=== PATIENT | male | born 1970 | race Caucasian/White ===

== ENCOUNTER 2018-08-17 12:12 | Emergency (ER) | payer BC, OTHER ==
[~2018-08-17] VITALS: Ht 175.3 cm; Wt 90.9 kg
[2018-08-17 12:13] VITALS: BP 218/101
[2018-08-17] MEDS ORDERED: DULO30CA PO (12:18)
[2018-08-17] MEDS ORDERED: BACI50OI TOP (14:56)
[2018-08-17] MEDS ORDERED: NEOSPORIN OINT 0.9 GM PKT (FLOOR STOCK) As Ordered ONE (14:58)
[2018-08-17] MEDS ORDERED: BACITRACIN OINT 30GM TOP ONE (15:00)
== END 2018-08-17 15:08 | disposition home or self-care (01) ==
LOC: M ED 12:12
DX: T23.201A Burn of second degree of right hand, unspecified site, initial encounter (principal); X12.XXXA Contact with other hot fluids, initial encounter; Y92.89 Other specified places as the place of occurrence of the external cause; I10 Essential (primary) hypertension; E06.3 Autoimmune thyroiditis; F43.10 Post-traumatic stress disorder, unspecified; Z86.718 Personal history of other venous thrombosis and embolism; Z88.0 Allergy status to penicillin; F17.200 Nicotine dependence, unspecified, uncomplicated; Z79.899 Other long term (current) drug therapy

== ENCOUNTER 2018-09-16 18:58 | Emergency (ER) | payer OTHER, BC ==
[~2018-09-16] VITALS: Ht 175.3 cm; Wt 90.9 kg
[~2018-09-16 18:58] MED LIST: BACI50OI TOP; DULO30CA PO
[2018-09-16] MEDS ORDERED: KETOROLAC TROMETHAMINE 10 MG TAB PO ONE (20:30)
[2018-09-16] MEDS ORDERED: ACETAMINOPHEN 325 MG TAB PO ONE (20:30)
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
[2018-09-16 21:33] VITALS: BP 152/89
== END 2018-09-16 21:34 | disposition home or self-care (01) ==
LOC: M ED 18:58
DX: S00.83XA Contusion of other part of head, initial encounter (principal); Y04.8XXA Assault by other bodily force, initial encounter; Y92.119 Unspecified place in children's home and orphanage as the place of occurrence of the external cause; Y93.89 Activity, other specified; Y99.0 Civilian activity done for income or pay; I10 Essential (primary) hypertension; Z86.718 Personal history of other venous thrombosis and embolism; F43.10 Post-traumatic stress disorder, unspecified; E06.3 Autoimmune thyroiditis; Z79.899 Other long term (current) drug therapy; Z88.0 Allergy status to penicillin

== ENCOUNTER → 2018-12-29 | Outpatient (REF) | payer BC, OTHER ==
[~2018-12-29] MED LIST changes: -DULO30CA PO; +DULO30CA9 PO; +MOBI4TAB PO; +PRED20TA PO; +ZANA4TAB PO
[2018-12-29 19:56] LABS: HEMATOCRIT 48.9 % (42.0-52.0); HEMOGLOBIN 15.9 g/dl (13.5-17.5); MEAN CORPUSCULAR HGB CONC 32.5 g/dl (32.0-36.5); MEAN CORPUSCULAR VOLUME 89.1 fl (80.0-96.0); PLATELET COUNT, AUTOMATED 272 10^3/uL (150-450); RED BLOOD COUNT 5.49 10^6/uL (4.30-6.10); WHITE BLOOD COUNT 9.5 10^3/uL (4.0-10.0)
[2018-12-29 20:04] LABS: ALBUMIN 4.3 GM/DL (3.2-5.2); ALT/SGPT 34 U/L (12-78); BILIRUBIN,TOTAL 0.3 MG/DL (0.2-1.0); BLOOD UREA NITROGEN 13 MG/DL (7-18); CALCIUM LEVEL 9.5 MG/DL (8.5-10.1); CARBON DIOXIDE LEVEL 27 MEQ/L (21-32); CHLORIDE LEVEL 104 MEQ/L (98-107); CHOLESTEROL LEVEL 245 MG/DL (<200); CREATININE FOR GFR 1.11 MG/DL (0.70-1.30); FREE T4 0.86 NG/DL (0.76-1.46); GLOMERULAR FILTRATION RATE > 60.0 (>60); GLUCOSE, FASTING 181 MG/DL (70-100); HDL CHOLESTEROL 49 MG/DL (>40); LDL CHOLESTEROL 166 MG/DL (<100); MAGNESIUM LEVEL 2.1 MG/DL (1.8-2.4); NON-HDL-C 196 MG/DL; POTASSIUM SERUM 4.2 MEQ/L (3.5-5.1); SODIUM LEVEL 139 MEQ/L (136-145); TOTAL PROTEIN 8.3 GM/DL (6.4-8.2); TRIGLYCERIDES LEVEL 148 MG/DL (<150)
[2018-12-29 20:06] LABS: FOLATE 3.7 NG/ML; TOTAL 25(OH) VITAMIN D 11.2 NG/ML (30.0-100.0); VITAMIN B12 LEVEL 636 PG/ML
== END ==
LOC: M SFHCADAM 13:27
PROVIDERS: ATTEND Physician Assistant
DX: M54.41 Lumbago with sciatica, right side (principal); G89.29 Other chronic pain; I10 Essential (primary) hypertension; E78.5 Hyperlipidemia, unspecified; Z86.39 Personal history of other endocrine, nutritional and metabolic disease

== ENCOUNTER → 2019-03-30 | Outpatient (REF) | payer BC, OTHER ==
[2019-03-30 20:20] LABS: BLOOD UREA NITROGEN 11 MG/DL (7-18); CALCIUM LEVEL 9.5 MG/DL (8.5-10.1); CARBON DIOXIDE LEVEL 29 MEQ/L (21-32); CHLORIDE LEVEL 107 MEQ/L (98-107); CREATININE FOR GFR 0.96 MG/DL (0.70-1.30); GLOMERULAR FILTRATION RATE > 60.0 (>60); GLUCOSE, FASTING 118 MG/DL (70-100); POTASSIUM SERUM 4.2 MEQ/L (3.5-5.1); SODIUM LEVEL 142 MEQ/L (136-145)
[2019-03-30 20:32] LABS: HEMOGLOBIN A1c 6.6 %
== END ==
LOC: M SFHCADAM 13:20
PROVIDERS: ATTEND Physician Assistant
DX: R73.9 Hyperglycemia, unspecified (principal); R73.01 Impaired fasting glucose

== ENCOUNTER → 2019-04-12 | Outpatient (CLI) | payer BC, OTHER ==
[2019-04-12 12:19] LABS: ALBUMIN 3.9 GM/DL (3.2-5.2); ALT/SGPT 32 U/L (12-78); BILIRUBIN,DIRECT < 0.1 MG/DL (0.0-0.2); BILIRUBIN,TOTAL 0.4 MG/DL (0.2-1.0); BLOOD UREA NITROGEN 15 MG/DL (7-18); CALCIUM LEVEL 9.3 MG/DL (8.5-10.1); CARBON DIOXIDE LEVEL 27 MEQ/L (21-32); CHLORIDE LEVEL 108 MEQ/L (98-107); CREATININE FOR GFR 0.96 MG/DL (0.70-1.30); GLOMERULAR FILTRATION RATE > 60.0 (>60); GLUCOSE, FASTING 149 MG/DL (70-100); PHOSPHORUS LEVEL 3.5 MG/DL (2.5-4.9); POTASSIUM SERUM 4.3 MEQ/L (3.5-5.1); SODIUM LEVEL 142 MEQ/L (136-145); TOTAL PROTEIN 7.4 GM/DL (6.4-8.2)
[2019-04-12 12:22] LABS: HEMATOCRIT 47.1 % (42.0-52.0); HEMOGLOBIN 15.6 g/dl (13.5-17.5); MEAN CORPUSCULAR HEMOGLOBIN 28.7 pg (27.0-33.0); MEAN CORPUSCULAR HGB CONC 33.1 g/dl (32.0-36.5); MEAN CORPUSCULAR VOLUME 86.7 fl (80.0-96.0); PLATELET COUNT, AUTOMATED 254 10^3/uL (150-450); RED BLOOD COUNT 5.43 10^6/uL (4.30-6.10); WHITE BLOOD COUNT 7.9 10^3/uL (4.0-10.0)
== END ==
LOC: M WUC 09:49
PROVIDERS: ATTEND Podiatrist Foot & Ankle Surgery
DX: Z79.899 Other long term (current) drug therapy (principal)

== ENCOUNTER 2019-04-30 15:36 | Emergency (ER) | payer BC, OTHER ==
[~2019-04-30] VITALS: Ht 175.3 cm; Wt 97.7 kg
[2019-04-30] MEDS ORDERED: TERB250T90 (15:55)
[2019-04-30] MEDS ORDERED: ASPIRIN 81 MG CHEW TABLET PO ONE (16:15)
--- NOTE | 2019-04-30 16:40 | REP ---
PA and lateral chest: There are no comparisons. The lung lawson are clear. The cardiac size is normal. The savannah, mediastinum, and skeletal structures are unremarkable. Impression: Negative PA and lateral chest. Electronically Signed by Edi Eisenberg MD 04/30/2019 04:32 P
[2019-04-30 16:43] LABS: BASO # 0.1 10^3/uL (0.0-0.2); BASO % 0.5 % (0.0-1.0); EOS # 0.4 10^3/uL (0.0-0.5); EOS % 4.3 % (0.0-3.0); HEMATOCRIT 46.3 % (42.0-52.0); HEMOGLOBIN 15.6 g/dl (13.5-17.5); LYMPH # 2.5 10^3/uL (1.5-5.0); LYMPH % 26.7 % (24.0-44.0); MEAN CORPUSCULAR HEMOGLOBIN 29.1 pg (27.0-33.0); MEAN CORPUSCULAR HGB CONC 33.7 g/dl (32.0-36.5); MEAN CORPUSCULAR VOLUME 86.4 fl (80.0-96.0); MONO # 0.5 10^3/uL (0.0-0.8); MONO % 5.9 % (0.0-5.0); NEUTROPHILS # 5.7 10^3/uL (1.5-8.5); NEUTROPHILS % 62.4 % (36.0-66.0); PLATELET COUNT, AUTOMATED 251 10^3/uL (150-450); RED BLOOD COUNT 5.36 10^6/uL (4.30-6.10); WHITE BLOOD COUNT 9.2 10^3/uL (4.0-10.0)
[2019-04-30] MEDS ORDERED: ACETAMINOPHEN TAB 650MG DOSE (2X325MG) PO ONE (16:45)
[2019-04-30 17:11] LABS: INFLUENZA A AMPLIFICATION NEGATIVE (NEGATIVE); INFLUENZA B AMPLIFICATION NEGATIVE (NEGATIVE)
[2019-04-30 17:17] LABS: INR 1.02; PARTIAL THROMBOPLASTIN TIME 32.6 SECONDS (25.0-38.4); PROTHROMBIN TIME 13.1 SECONDS (11.8-14.0)
[2019-04-30 17:19] LABS: ALBUMIN 3.8 GM/DL (3.2-5.2); ALT/SGPT 35 U/L (12-78); BILIRUBIN,DIRECT < 0.1 MG/DL (0.0-0.2); BILIRUBIN,TOTAL 0.3 MG/DL (0.2-1.0); BLOOD UREA NITROGEN 12 MG/DL (7-18); CALCIUM LEVEL 8.9 MG/DL (8.5-10.1); CARBON DIOXIDE LEVEL 26 MEQ/L (21-32); CHLORIDE LEVEL 107 MEQ/L (98-107); CK-MB VALUE MASS < 1.0 NG/ML (<3.6); CPK CREATINE PHOSPHOKINASE 120 U/L (39-308); FREE T4 0.82 NG/DL (0.76-1.46); GLOMERULAR FILTRATION RATE > 60.0 (>60); GLUCOSE, FASTING 158 MG/DL (70-100); LIPASE 154 U/L (73-393); MB/CK RELATIVE INDEX 0.83 (< OR =4); POTASSIUM SERUM 3.6 MEQ/L (3.5-5.1); SODIUM LEVEL 140 MEQ/L (136-145); TOTAL PROTEIN 7.9 GM/DL (6.4-8.2); TROPONIN I < 0.02 NG/ML (< 0.10)
[2019-04-30] MEDS ORDERED: ISOVUE-370 76% 100ML VIAL (Q9967) As Ordered ONE (17:29)
--- NOTE | 2019-04-30 18:56 | REPVR ---
PROCEDURE INFORMATION: Exam: CT Angiography Chest With Contrast Exam date and time: 04/30/2019 5:46 PM Clinical history: 48 years old, male; Chest wall pain; Additional info: Pleuritic chest pain, SOB TECHNIQUE: Imaging protocol: Computed tomographic angiography of the chest with intravenous contrast. 3D rendering: MIP reconstructed images were created and reviewed. Radiation optimization: All CT scans at this facility use at least one of these dose optimization techniques: automated exposure control; mA and/or kV adjustment per patient size (includes targeted exams where dose is matched to clinical indication); or iterative reconstruction. Contrast material: ISOVUE 370; Contrast volume: 75 ml; Contrast route: IV; COMPARISON: CR Chest, 2 view PA, Lat 04/30/2019 4:19 PM FINDINGS: Pulmonary arteries: No focal pulmonary artery filling defect to suggest acute pulmonary embolus. Aorta: No thoracic aortic aneurysm or dissection. Lungs: Pulmonary vascular/interstitial pattern does not suggest active pulmonary edema. No suspicious lung mass or air space process. No central endobronchial lesion. Pleural space: No pleural effusion or pneumothorax. Heart: No overt cardiac enlargement or pericardial effusion. Lymph nodes: No enlarged mediastinal lymph nodes. Bones/joints: Bony structures show no acute fracture or destructive process. Other findings: Limited visualization of upper abdomen shows no concerning finding. IMPRESSION: No evidence of acute pulmonary emboli or other concerning focal thoracic abnormality Electronically signed by: Vernon Cee On 04/30/2019 18:56:17 PM
[2019-04-30 22:24] LABS: CK-MB VALUE MASS 1.1 NG/ML (<3.6); CPK CREATINE PHOSPHOKINASE 118 U/L (39-308); MB/CK RELATIVE INDEX 0.93 (< OR =4); TROPONIN I < 0.02 NG/ML (< 0.10)
[2019-04-30 23:00] VITALS: BP 154/89
--- NOTE | 2019-05-01 08:13 | ECGEPIP ---
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
--- NOTE | 2019-05-01 08:18 | ECGEPIP ---
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
== END 2019-04-30 23:33 | disposition home or self-care (01) ==
LOC: M ED 15:36
DX: R53.81 Other malaise (principal); R07.89 Other chest pain; R94.31 Abnormal electrocardiogram [ECG] [EKG]; I10 Essential (primary) hypertension; Z79.899 Other long term (current) drug therapy; Z86.39 Personal history of other endocrine, nutritional and metabolic disease; Z87.891 Personal history of nicotine dependence; Z88.0 Allergy status to penicillin
CPT/HCPCS: 71046; 71275; 80048; 80076; 82550; 82553; 83690; 84439; 84443; 84484; 85025; 85610; 85730; 87502; 93005; 93041; 94760; 99285; Q9967

== ENCOUNTER 2019-05-06 01:39 | Emergency (ER) | payer BC, OTHER ==
[~2019-05-06 01:39] MED LIST changes: +TERB250T90
[2019-05-06 02:11] LABS: BASO # 0.1 10^3/uL (0.0-0.2); BASO % 0.9 % (0.0-1.0); EOS # 0.5 10^3/uL (0.0-0.5); EOS % 5.2 % (0.0-3.0); HEMATOCRIT 43.1 % (42.0-52.0); HEMOGLOBIN 14.5 g/dl (13.5-17.5); LYMPH # 3.1 10^3/uL (1.5-5.0); LYMPH % 33.8 % (24.0-44.0); MEAN CORPUSCULAR HEMOGLOBIN 29.4 pg (27.0-33.0); MEAN CORPUSCULAR HGB CONC 33.6 g/dl (32.0-36.5); MEAN CORPUSCULAR VOLUME 87.2 fl (80.0-96.0); MONO # 0.6 10^3/uL (0.0-0.8); MONO % 6.5 % (0.0-5.0); NEUTROPHILS # 4.8 10^3/uL (1.5-8.5); NEUTROPHILS % 53.3 % (36.0-66.0); PLATELET COUNT, AUTOMATED 243 10^3/uL (150-450); RED BLOOD COUNT 4.94 10^6/uL (4.30-6.10); WHITE BLOOD COUNT 9.1 10^3/uL (4.0-10.0)
[2019-05-06 02:24] LABS: INR 1.04; PROTHROMBIN TIME 13.3 SECONDS (11.8-14.0)
[2019-05-06 02:44] LABS: ALBUMIN 3.5 GM/DL (3.2-5.2); ALT/SGPT 34 U/L (12-78); BILIRUBIN,DIRECT < 0.1 MG/DL (0.0-0.2); BILIRUBIN,TOTAL 0.2 MG/DL (0.2-1.0); BLOOD UREA NITROGEN 12 MG/DL (7-18); CALCIUM LEVEL 8.8 MG/DL (8.5-10.1); CARBON DIOXIDE LEVEL 25 MEQ/L (21-32); CHLORIDE LEVEL 105 MEQ/L (98-107); CK-MB VALUE MASS < 1.0 NG/ML (<3.6); CPK CREATINE PHOSPHOKINASE 152 U/L (39-308); CREATININE FOR GFR 1.24 MG/DL (0.70-1.30); GLOMERULAR FILTRATION RATE > 60.0 (>60); GLUCOSE, FASTING 235 MG/DL (70-100); LIPASE 146 U/L (73-393); MB/CK RELATIVE INDEX 0.66 (< OR =4); SODIUM LEVEL 139 MEQ/L (136-145); TOTAL PROTEIN 6.8 GM/DL (6.4-8.2); TROPONIN I < 0.02 NG/ML (< 0.10)
[2019-05-06 03:32] LABS: HEMOGLOBIN A1c 6.7 %
[2019-05-06 04:30] VITALS: BP 110/52
[2019-05-06] MEDS ORDERED: METF500T13 PO (04:51)
[2019-05-06] MEDS ORDERED: metFORMIN (GLUCOPHAGE) 500 MG TAB PO ONE (05:00)
--- NOTE | 2019-05-06 07:48 | ECGEPIP ---
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
--- NOTE | 2019-05-06 08:04 | REP ---
Portable chest, 02:09 a.m., single AP view with the patient sitting: Comparison is 04/30/2019. The lung lawson are clear. The cardiac size is normal. The savannah, mediastinum, and skeletal structures are unremarkable. Impression: Negative portable chest. There is no interval change. Electronically Signed by Edi Eisenberg MD 05/06/2019 07:55 A
== END 2019-05-06 05:06 | disposition home or self-care (01) ==
LOC: M ED 01:39
DX: R07.89 Other chest pain (principal); E11.9 Type 2 diabetes mellitus without complications; I10 Essential (primary) hypertension; Z79.899 Other long term (current) drug therapy; Z86.39 Personal history of other endocrine, nutritional and metabolic disease; Z86.718 Personal history of other venous thrombosis and embolism; Z87.891 Personal history of nicotine dependence; Z88.0 Allergy status to penicillin

== ENCOUNTER 2019-06-28 01:14 | Emergency (ER) | payer BC, OTHER ==
[~2019-06-28] VITALS: Ht 175.3 cm; Wt 95.5 kg
[~2019-06-28 01:14] MED LIST changes: +METF500T13 PO
[2019-06-28 01:21] VITALS: BP 172/100
[2019-06-28] MEDS ORDERED: DULO1CAP6 (01:22)
[2019-06-28] MEDS ORDERED: ASPI81TA85 PO (01:22)
[2019-06-28] MEDS ORDERED: CARV6.25 (01:22)
[2019-06-28] MEDS ORDERED: CYMB60CA3 PO (12:07)
[2019-06-28] MEDS ORDERED: ACET-683 PO (12:07)
[2019-06-28] MEDS ORDERED: CYCL10TA PO (12:47)
== END 2019-06-28 02:45 | disposition left against medical advice (07) ==
LOC: M ED 01:14
DX: M25.511 Pain in right shoulder (principal); Z53.21 Procedure and treatment not carried out due to patient leaving prior to being seen by health care provider

== ENCOUNTER 2019-06-28 11:56 | Emergency (ER) | payer BC, OTHER ==
[~2019-06-28] VITALS: Ht 175.3 cm; Wt 95.5 kg
[~2019-06-28 11:56] MED LIST changes: +ASPI81TA85 PO; +CARV6.25; +DULO1CAP6
[2019-06-28 11:57] VITALS: BP 144/90
[2019-06-28] MEDS ORDERED: ACET-683 PO (12:07)
[2019-06-28] MEDS ORDERED: CYMB60CA3 PO (12:07)
[2019-06-28] MEDS ORDERED: CYCLOBENZAPRINE 10 MG TAB PO ONE (12:30)
[2019-06-28] MEDS ORDERED: NORCO, ANEXSIA 5/325MG TABLET (HYDROcodone/ACETAMINOPHEN) PO ONE (12:30)
--- NOTE | 2019-06-28 12:33 | REP ---
Clinical: Pain with decreased range of motion . Technique: Internal rotation, external rotation, and Y view right shoulder . Findings: No acute fracture or dislocation. The acromioclavicular and glenohumeral joints are intact. No periarticular calcifications or degenerative changes are appreciated. Sub acromial space is normal. Surrounding soft tissues are unremarkable. Impression: Normal age-appropriate right shoulder radiographs. Electronically Signed by Guilherme Marshall MD 06/28/2019 12:24 P
[2019-06-28] MEDS ORDERED: CYCL10TA PO (12:47)
== END 2019-06-28 13:08 | disposition home or self-care (01) ==
LOC: M ED 11:56
DX: M25.511 Pain in right shoulder (principal); E11.9 Type 2 diabetes mellitus without complications; I10 Essential (primary) hypertension; Z88.0 Allergy status to penicillin; Z87.891 Personal history of nicotine dependence; Z98.1 Arthrodesis status; Z79.4 Long term (current) use of insulin; Z79.82 Long term (current) use of aspirin; Z79.899 Other long term (current) drug therapy

== ENCOUNTER → 2019-07-12 | Outpatient (REF) | payer OTHER ==
[~2019-07-12] MED LIST changes: +ACET-683 PO; +CYCL10TA PO; +CYMB60CA3 PO
[2019-07-12 12:44] LABS: CHOLESTEROL LEVEL 279 MG/DL (<200); CHOLESTEROL RISK RATIO 7.153 (<5); HDL CHOLESTEROL 39 MG/DL (>40); NON-HDL-C 240 MG/DL; TRIGLYCERIDES LEVEL 428 MG/DL (<150)
[2019-07-12 13:05] LABS: HEMOGLOBIN A1c 6.9 %
== END ==
LOC: M SFHCADAM 10:22
PROVIDERS: ATTEND Physician Assistant
DX: R73.03 Prediabetes (principal)

== ENCOUNTER 2019-08-27 16:43 | Emergency (ER) | payer OTHER ==
[~2019-08-27] VITALS: Ht 175.3 cm; Wt 105.2 kg
[2019-08-27] MEDS ORDERED: TELM1TAB PO (16:51)
[2019-08-27] MEDS ORDERED: METF10004 PO (16:51)
[2019-08-27] MEDS ORDERED: NITR0.4S14 (16:51)
[2019-08-27] MEDS ORDERED: PERCOCET 5MG/325MG TAB PO ONE ×2 (17:30→23:00)
[2019-08-27] MEDS ORDERED: PERC5TAB12 PO (23:43)
[2019-08-27] MEDS ORDERED: OXYCODONE/APAP 5MG/325MG(BULK FOR ED) 1 TABLET PO ONE (23:45)
[2019-08-27 23:57] VITALS: BP 176/107
== END 2019-08-27 23:58 | disposition home or self-care (01) ==
LOC: M ED 16:43
DX: M54.5 Low back pain (principal); W00.9XXA Unspecified fall due to ice and snow, initial encounter; Y92.099 Unspecified place in other non-institutional residence as the place of occurrence of the external cause; Y93.01 Activity, walking, marching and hiking; Y99.9 Unspecified external cause status; E11.9 Type 2 diabetes mellitus without complications; I10 Essential (primary) hypertension; E06.3 Autoimmune thyroiditis; M54.30 Sciatica, unspecified side; Z79.82 Long term (current) use of aspirin; Z79.84 Long term (current) use of oral hypoglycemic drugs; Z79.899 Other long term (current) drug therapy; Z88.0 Allergy status to penicillin

== ENCOUNTER → 2019-09-07 | Outpatient (REF) | payer OTHER ==
[~2019-09-07] MED LIST changes: +METF10004 PO; +NITR0.4S14; +PERC5TAB12 PO; +TELM1TAB35 PO
[2019-09-07 18:01] LABS: ALBUMIN 4.3 GM/DL (3.2-5.2); ALT/SGPT 51 U/L (12-78); BILIRUBIN,TOTAL 0.3 MG/DL (0.2-1.0); BLOOD UREA NITROGEN 13 MG/DL (7-18); CALCIUM LEVEL 9.4 MG/DL (8.5-10.1); CARBON DIOXIDE LEVEL 31 MEQ/L (21-32); CHLORIDE LEVEL 104 MEQ/L (98-107); GLOMERULAR FILTRATION RATE > 60.0 (>60); GLUCOSE, FASTING 103 MG/DL (70-100); POTASSIUM SERUM 5.1 MEQ/L (3.5-5.1); SODIUM LEVEL 141 MEQ/L (136-145)
[2019-09-07 18:24] LABS: RUBELLA IgG QUALITATIVE IMMUNE (IMMUNE)
[2019-09-09 08:06] LABS: RUBEOLA IgG ANTIBODY 76.9 AU/mL (Immune >16.4)
== END ==
LOC: M SFHCADAM 13:46
PROVIDERS: ATTEND Physician Assistant
DX: M54.41 Lumbago with sciatica, right side (principal); Z91.81 History of falling; Z78.9 Other specified health status
CPT/HCPCS: 72100; 80053; 86735; 86762; 86765; G0463

== ENCOUNTER → 2019-09-07 | Outpatient (CLI) | payer OTHER ==
--- NOTE | 2019-09-07 14:41 | REP ---
Clinical: Lumbago and sciatica Technique: AP, lateral, bilateral oblique and coned-down views of the lumbosacral spine. Comparison: 12/26/2018. Findings: Alignment and lordosis maintained. Evidence for prior posterior fixation and laminectomy at L5-S1 again noted and stable. No acute fracture / compression injury or subluxation. Examination is otherwise unremarkable. Left iliac stent again noted. Impression: Stable examination. No evidence for progressive degenerative change. Electronically Signed by Guilherme Marshall MD 09/07/2019 02:33 P
== END ==
LOC: M ADAMS 13:51
PROVIDERS: ATTEND Physician Assistant
DX: M54.41 Lumbago with sciatica, right side (principal)

== ENCOUNTER → 2019-09-16 | Outpatient (CLI) | payer OTHER ==
--- NOTE | 2019-09-16 16:22 | REPVR ---
PROCEDURE INFORMATION: Exam: MR Lumbar Spine Without and With Contrast. Exam date and time: 09/16/2019 3:23 PM Age: 49 years old Clinical indication: Patient HX: Low back pain. PT was given 19cc prohance; Additional info: Lumbago w/ sciatica TECHNIQUE: Imaging protocol: Multiplanar magnetic resonance images of the lumbar spine without and with intravenous contrast. Contrast material: PROHANCE; Contrast volume: 19 ml; Contrast route: 22G; COMPARISON: DX - SPINE LS COMPLETE 09/07/2019 1:39:17 PM FINDINGS: Last rib-bearing segment on x-ray labeled T12. Assuming 5 lumbar type vertebra, fusion is at L5-S1. Please correlate closely with imaging prior to any intervention to assure proper level localization. Vertebrae: Vertebral body heights normal. There is mild retrolisthesis of L4 on L5. There are mild endplate degenerative marrow changes at L4-L5. Vertebral body marrow signal is otherwise unremarkable. Spinal cord: Conus terminates at L1 and appears normal in signal intensity without intrinsic or extrinsic lesion. There is no abnormal contrast enhancement along distal cordal cauda equina. L1-L2: Sagittal images only. There is no significant disc bulge. There is no significant spinal stenosis. There is no significant neural foraminal narrowing. L2-L3: There is no significant disc bulge. Mild facet degeneration. There is no significant spinal stenosis. There is no significant neural foraminal narrowing. L3-L4: There is no significant disc bulge. Mild facet degeneration. There is no significant facet degeneration. There is no significant spinal stenosis. There is no significant neural foraminal narrowing. L4-L5: There is partial disc desiccation and disc height loss posteriorly. There is mild disc bulge. There is mild facet degeneration. There is no significant spinal stenosis. There is mild to moderate predominantly medial bilateral neural foraminal narrowing. L5-S1: There are postoperative changes with anterior plate and screw fusion, bilateral posterior pedicle screws and rods fusion, and interbody fusion graft which is well positioned in disc space. There is posterior laminectomy. Precontrast, there appears to be mild loss fat planes around left in posterior margin of the thecal sac which likely shows minimal enhancement and suggesting minimal epidural scar. There is minimal residual posterior disc bulge. Facets are obscured by metal artifact. There is no significant spinal stenosis. There is no significant neural foraminal narrowing. Sacrum/coccyx: S1-S2: There is a rudimentary / thin disc space at this level. No disc bulge. There is no evidence of spinal stenosis or neural foraminal narrowing. Soft tissues: Unremarkable. IMPRESSION: 1. Postsurgical changes at L5-S1. Possible minimal epidural scar. 2. Mild degenerative changes greatest at L4-L5 with mild to moderate narrowing of medial aspect of neural foramen. No spinal stenosis. Electronically signed by: Cinda Murry On 09/16/2019 16:21:58 PM
== END ==
LOC: M PLARAD 14:24
PROVIDERS: ATTEND Physician Assistant
DX: M54.41 Lumbago with sciatica, right side (principal); Z91.81 History of falling; Z98.890 Other specified postprocedural states; M51.36 Other intervertebral disc degeneration, lumbar region; Z98.1 Arthrodesis status

== ENCOUNTER → 2019-10-13 | Outpatient (REF) | payer OTHER ==
[2019-10-13 16:20] LABS: PLATELET COUNT, AUTOMATED 279 10^3/uL (150-450)
[2019-10-13 17:10] LABS: PROTHROMBIN TIME 12.9 SECONDS (11.8-14.0)
[2019-10-13 17:11] LABS: PARTIAL THROMBOPLASTIN TIME 31.6 SECONDS (25.0-38.4)
== END ==
LOC: M LABDRAW1 12:06
PROVIDERS: ATTEND Physical Medicine & Rehabilitation
DX: D69.1 Qualitative platelet defects (principal); M51.36 Other intervertebral disc degeneration, lumbar region

== ENCOUNTER 2020-05-28 15:40 | Emergency (ER) | payer OTHER ==
[~2020-05-28] VITALS: Ht 175.3 cm; Wt 102.8 kg
[~2020-05-28 15:40] MED LIST changes: -ASPI81TA85 PO; +ASPI81TA86 PO; +CYCL-707 PO; -CYCL10TA PO
--- NOTE | 2020-05-28 17:06 | REP ---
INDICATION: fall injury; vert. point tender. COMPARISON: 12/26/2018 TECHNIQUE: Three views FINDINGS: AP view shows a very gentle levorotatory curve of the mid upper thoracic spine centered at T4, unchanged. Pedicles spinous and transverse processes intact. Posterior rib articulations and medial clavicles also intact. Paraspinal lines unremarkable. Cervicothoracic junction aligns normally. No compression deformity disc space narrowing or malalignment in the thoracic vertebral levels. Few small marginal osteophytes that I would regard is normal for age. IMPRESSION: Mild levorotatory curve upper thoracic spine, stable. No acute compression deformity, malalignment or destructive lesion. Visualized ribs and clavicles unremarkable. <Electronically signed by Lalito Lopez > 05/28/20 [id number]
--- NOTE | 2020-05-28 17:11 | REP ---
INDICATION: fall injury; vert. point tender. COMPARISON: 09/07/2019 TECHNIQUE: Five views FINDINGS: There is evidence for prior laminectomy with pedicle screws in arch bars at L5-S1 again seen. Narrowing of the L4-5 disc space evident as before few mm of retrolisthesis of L4 on 5 stable left common to external iliac stent is noted. Disc spacer hardware and screws also again seen and stable. There is no compression deformity or malalignment. SI joints intact. Visualized sacrum and iliac bones intact. Hip joints show small marginal osteophytes. IMPRESSION: Status post L5-S1 laminectomy and disc fusion with that disc spacer and fusion screws along with pedicle screws in arch bars at this level unchanged with no hardware failure. Alignment unchanged with a few mm of retrolisthesis of L4 on 5 and mild disc space narrowing at that level. The levels above were intact with no compression deformities. Left common at to external iliac stent again seen. <Electronically signed by Lalito Lopez > 05/28/20 [id number]
[2020-05-28] MEDS ORDERED: PERC5TAB12 PO (17:22)
[2020-05-28 17:30] VITALS: BP 145/94
[2020-05-28] MEDS ORDERED: PERCOCET 5MG/325MG TAB PO ONE (17:30)
== END 2020-05-28 17:45 | disposition home or self-care (01) ==
LOC: M ED 15:40
DX: G89.29 Other chronic pain (principal); M54.5 Low back pain; S30.0XXA Contusion of lower back and pelvis, initial encounter; W19.XXXA Unspecified fall, initial encounter; Y92.9 Unspecified place or not applicable; Y93.9 Activity, unspecified; Y99.9 Unspecified external cause status; I10 Essential (primary) hypertension; E78.5 Hyperlipidemia, unspecified; F43.10 Post-traumatic stress disorder, unspecified; Z95.828 Presence of other vascular implants and grafts; Z86.718 Personal history of other venous thrombosis and embolism; M43.27 Fusion of spine, lumbosacral region; M43.17 Spondylolisthesis, lumbosacral region; Z79.82 Long term (current) use of aspirin; Z79.84 Long term (current) use of oral hypoglycemic drugs; Z79.899 Other long term (current) drug therapy; Z88.0 Allergy status to penicillin

== ENCOUNTER → 2020-05-31 | Outpatient (REF) | payer OTHER ==
[2020-06-01 13:25] LABS: HEMATOCRIT 49.5 % (42.0-52.0); MEAN CORPUSCULAR HEMOGLOBIN 28.2 pg (27.0-33.0); MEAN CORPUSCULAR HGB CONC 32.3 g/dl (32.0-36.5); MEAN CORPUSCULAR VOLUME 87.1 fl (80.0-96.0); PLATELET COUNT, AUTOMATED 279 10^3/uL (150-450); RED BLOOD COUNT 5.68 10^6/uL (4.30-6.10)
[2020-06-01 14:03] LABS: ALBUMIN 4.3 GM/DL (3.2-5.2); ALT/SGPT 51 U/L (12-78); BILIRUBIN,TOTAL 0.5 MG/DL (0.2-1.0); BLOOD UREA NITROGEN 7 MG/DL (7-18); CALCIUM LEVEL 9.5 MG/DL (8.5-10.1); CARBON DIOXIDE LEVEL 28 MEQ/L (21-32); CHLORIDE LEVEL 104 MEQ/L (98-107); CHOLESTEROL LEVEL 248 MG/DL (<200); CHOLESTEROL RISK RATIO 6.048 (<5); CREATININE FOR GFR 1.08 MG/DL (0.70-1.30); FREE T4 0.86 NG/DL (0.76-1.46); GLOMERULAR FILTRATION RATE > 60.0 (>60); GLUCOSE, FASTING 173 MG/DL (70-100); HDL CHOLESTEROL 41 MG/DL (>40); LDL CHOLESTEROL 153 MG/DL (<100); NON-HDL-C 207 MG/DL; POTASSIUM SERUM 5.4 MEQ/L (3.5-5.1); SODIUM LEVEL 138 MEQ/L (136-145); TOTAL PROTEIN 8.4 GM/DL (6.4-8.2); TRIGLYCERIDES LEVEL 272 MG/DL (<150)
== END ==
LOC: M SFHCADAM 16:08
PROVIDERS: ATTEND Physician Assistant
DX: E11.69 Type 2 diabetes mellitus with other specified complication (principal); Z86.39 Personal history of other endocrine, nutritional and metabolic disease
CPT/HCPCS: 80053; 80061; 83036; 84439; 84443; G0463

== ENCOUNTER → 2020-08-17 | Outpatient (CLI) | payer OTHER ==
[2020-08-17 16:34] LABS: PLATELET COUNT, AUTOMATED 262 10^3/uL (150-450)
[2020-08-17 18:04] LABS: PLATELET ESTIMATE NORMAL (NORMAL)
== END ==
LOC: M WUC 11:34
PROVIDERS: ATTEND Physician Assistant
DX: M47.817 Spondylosis without myelopathy or radiculopathy, lumbosacral region (principal)

== ENCOUNTER → 2020-08-30 | Outpatient (CLI) | payer OTHER ==
[2020-08-30 16:16] LABS: HEMATOCRIT 48.6 % (42.0-52.0); HEMOGLOBIN 15.8 g/dl (13.5-17.5); MEAN CORPUSCULAR HEMOGLOBIN 28.7 pg (27.0-33.0); MEAN CORPUSCULAR HGB CONC 32.5 g/dl (32.0-36.5); MEAN CORPUSCULAR VOLUME 88.4 fl (80.0-96.0); PLATELET COUNT, AUTOMATED 278 10^3/uL (150-450); WHITE BLOOD COUNT 9.2 10^3/uL (4.0-10.0)
[2020-08-30 16:52] LABS: ALBUMIN 4.1 GM/DL (3.2-5.2); ALT/SGPT 45 U/L (12-78); BILIRUBIN,TOTAL 0.4 MG/DL (0.2-1.0); BLOOD UREA NITROGEN 12 MG/DL (7-18); CALCIUM LEVEL 9.3 MG/DL (8.5-10.1); CARBON DIOXIDE LEVEL 29 MEQ/L (21-32); CHLORIDE LEVEL 106 MEQ/L (98-107); CHOLESTEROL LEVEL 222 MG/DL (<200); CHOLESTEROL RISK RATIO 4.826 (<5); CREATININE FOR GFR 1.04 MG/DL (0.70-1.30); FREE T4 0.97 NG/DL (0.76-1.46); GLOMERULAR FILTRATION RATE > 60.0 (>60); GLUCOSE, FASTING 205 MG/DL (70-100); HDL CHOLESTEROL 46 MG/DL (>40); LDL CHOLESTEROL 134 MG/DL (<100); NON-HDL-C 176 MG/DL; SODIUM LEVEL 140 MEQ/L (136-145); TOTAL PROTEIN 7.8 GM/DL (6.4-8.2); TRIGLYCERIDES LEVEL 212 MG/DL (<150)
[2020-08-30 18:43] LABS: HEMOGLOBIN A1c 8.1 %
== END ==
LOC: M WUC 14:05
PROVIDERS: ATTEND Physician Assistant
DX: E11.69 Type 2 diabetes mellitus with other specified complication (principal); Z86.39 Personal history of other endocrine, nutritional and metabolic disease; I10 Essential (primary) hypertension

== ENCOUNTER 2021-01-27 15:09 | Emergency (ER) | payer OTHER ==
[~2021-01-27] VITALS: Ht 175.3 cm; Wt 100.6 kg
[2021-01-27] MEDS ORDERED: BUSP10TA (15:26)
[2021-01-27] MEDS ORDERED: SERT-141 PO (15:26)
[2021-01-27] MEDS ORDERED: HYDR-3713 (15:26)
[2021-01-27] MEDS ORDERED: ATOR80TA59 (15:26)
[2021-01-27] MEDS ORDERED: SYNT50TA PO (15:26)
[2021-01-27] MEDS ORDERED: ERGO500029 (15:26)
[2021-01-27] MEDS ORDERED: LISI20TA33 (15:26)
[2021-01-27] MEDS ORDERED: NS 1,000 ML IV ONE (17:00)
[2021-01-27] MEDS ORDERED: ONDANSETRON 4MG/2ML VIAL IV ONE (17:00)
[2021-01-27] MEDS ORDERED: KETOROLAC 30 MG/ML 1ML VIAL IV ONE (17:00)
[2021-01-27 17:23] LABS: BASO # 0.1 10^3/uL (0.0-0.2); BASO % 0.6 % (0.0-1.0); EOS # 0.2 10^3/uL (0.0-0.5); EOS % 1.7 % (0.0-3.0); HEMATOCRIT 40.1 % (42.0-52.0); LYMPH % 27.7 % (24.0-44.0); MEAN CORPUSCULAR HEMOGLOBIN 28.1 pg (27.0-33.0); MEAN CORPUSCULAR HGB CONC 32.4 g/dl (32.0-36.5); MEAN CORPUSCULAR VOLUME 86.8 fl (80.0-96.0); MONO # 0.8 10^3/uL (0.0-0.8); MONO % 7.7 % (2.0-8.0); NEUTROPHILS # 6.8 10^3/uL (1.5-8.5); NEUTROPHILS % 61.9 % (36.0-66.0); PLATELET COUNT, AUTOMATED 264 10^3/uL (150-450); RED BLOOD COUNT 4.62 10^6/uL (4.30-6.10)
[2021-01-27 17:49] LABS: ALBUMIN 3.5 GM/DL (3.2-5.2); BILIRUBIN,DIRECT 0.1 MG/DL (0.0-0.2); BILIRUBIN,TOTAL 0.5 MG/DL (0.2-1.0)
[2021-01-27] MEDS ORDERED: ISOVUE-370 76% 100ML VIAL As Ordered ONE (19:25)
--- NOTE | 2021-01-27 20:26 | REPVR ---
PROCEDURE INFORMATION: Exam: CT Lumbar Spine Without Contrast Exam date and time: 01/27/2021 7:37 PM Age: 50 years old Clinical indication: Other: Increase back/side pain S/P dorsal column stim placement; Prior surgery; Surgery date: 6+ months TECHNIQUE: Imaging protocol: Computed tomography images of the lumbar spine without contrast. Radiation optimization: All CT scans at this facility use at least one of these dose optimization techniques: automated exposure control; mA and/or kV adjustment per patient size (includes targeted exams where dose is matched to clinical indication); or iterative reconstruction. COMPARISON: MRI-LS SPINE W/O FOLL WITH CON 09/16/2019 2:51 PM FINDINGS: Tubes, catheters and devices: Status post placement of a spinal stimulator in the thoracic epidural space. Vertebrae: Status post posterior interbody fusion of L5 and S1 using transpedicular screws metallic rods with bone grafts. Disc fish header L5-S1. Status post L5 bilateral laminectomy. Mild retrolisthesis of L4 on L5. L1-L2: No significant disc protrusion. No severe spinal canal stenosis. No significant neural foraminal narrowing. L2-L3: No significant disc protrusion. No severe spinal canal stenosis. No significant neural foraminal narrowing. L3-L4: No significant disc protrusion. No severe spinal canal stenosis. No significant neural foraminal narrowing. L4-L5: No significant disc protrusion. No severe spinal canal stenosis. No significant neural foraminal narrowing. L5-S1: See "Vertebrae" finding. Vasculature: Status post placement of a left iliac vein vascular stent. Soft tissues: Unremarkable. IMPRESSION: 1. Status post posterior interbody fusion of L5 and S1 using transpedicular screws metallic rods with bone grafts. Disc fish header L5-S1. 2. Status post L5 bilateral laminectomy. 3. Status post placement of a left iliac vein vascular stent. 4. Status post placement of a spinal stimulator in the thoracic epidural space. Electronically signed by: Klaus Guillaume On 01/27/2021 20:25:38 PM
--- NOTE | 2021-01-27 20:32 | REPVR ---
PROCEDURE INFORMATION: Exam: CT Abdomen And Pelvis With Contrast Exam date and time: 01/27/2021 7:37 PM Age: 50 years old Clinical indication: Abdominal pain; Localized; Left upper quadrant (luq); Additional info: Luq pain TECHNIQUE: Imaging protocol: Computed tomography of the abdomen and pelvis with contrast. Radiation optimization: All CT scans at this facility use at least one of these dose optimization techniques: automated exposure control; mA and/or kV adjustment per patient size (includes targeted exams where dose is matched to clinical indication); or iterative reconstruction. Contrast material: ISOVUE 370; Contrast volume: 100 ml; Contrast route: INTRAVENOUS (IV); COMPARISON: CR Spine. Lumbosacral, complete 05/28/2020 4:40 PM FINDINGS: Lungs: Bibasilar atelectasis. Pleural spaces: Focal pleural thickening right lung base. Liver: There is a diffuse decrease in hepatic parenchymal density, consistent with steatosis. Gallbladder and bile ducts: Normal. No calcified stones. No ductal dilation. Pancreas: Normal. No ductal dilation. Spleen: Normal. No splenomegaly. Adrenal glands: Normal. No mass. Kidneys and ureters: Normal. No hydronephrosis. Stomach and bowel: Mild diverticulosis is present in the distal left colon. No diverticulitis. Appendix: No evidence of appendicitis. Intraperitoneal space: Unremarkable. No free air. No significant fluid collection. Vasculature: Status post placement of a left iliac graft. Density within the graft lumen is decreased in comparison to the opacified right iliac vein. Finding may suggest occlusion. Correlation with dedicated vascular imaging suggested if clinically desired. The aortoiliac vessels demonstrate mild atherosclerotic calcification. Lymph nodes: Unremarkable. No enlarged lymph nodes. Urinary bladder: Unremarkable as visualized. Reproductive: The prostate gland demonstrates mild hyperplasia. Bones/joints: Status post transfixation of L5 on S1 status post L5 laminectomies. Please see accompanying lumbar CT report. Soft tissues: Right inguinal hernia without incarceration. IMPRESSION: 1. Status post placement of a left iliac graft. Density within the graft lumen is decreased in comparison to the opacified right iliac vein. Finding may suggest occlusion. Correlation with dedicated vascular imaging suggested if clinically desired. 2. There is a diffuse decrease in hepatic parenchymal density, consistent with steatosis. 3. Mild diverticulosis is present in the distal left colon. No diverticulitis. 4. Mild prostatic hyperplasia. Electronically signed by: Klaus Guillaume On 01/27/2021 20:32:22 PM
[2021-01-27] MEDS ORDERED: MORPHINE 4 MG/ML 1ML VIAL/SYRINGE (J2270) IV ONE (22:15)
[2021-01-28] MEDS ORDERED: LIDO5DIS41 TOP (01:21)
[2021-01-28 01:40] VITALS: BP 140/82
--- NOTE | 2021-01-28 06:21 | ED PDOC ---
Post-Departure Follow-Up certified letter sent to pt re ct abd/p. obtain vasular surgeon name and fax rep ort for fu Kelli White MD Jan 28, 2021 06:21
== END 2021-01-28 02:07 | disposition home or self-care (01) ==
LOC: M ED 15:09
DX: G89.18 Other acute postprocedural pain (principal); I82.521 Chronic embolism and thrombosis of right iliac vein; Z96.82 Presence of neurostimulator; K57.30 Diverticulosis of large intestine without perforation or abscess without bleeding; N40.0 Benign prostatic hyperplasia without lower urinary tract symptoms; I10 Essential (primary) hypertension; E78.5 Hyperlipidemia, unspecified; F43.10 Post-traumatic stress disorder, unspecified; E06.3 Autoimmune thyroiditis; Z86.718 Personal history of other venous thrombosis and embolism; Z95.828 Presence of other vascular implants and grafts; Z79.84 Long term (current) use of oral hypoglycemic drugs; Z88.0 Allergy status to penicillin
CPT/HCPCS: 72131; 74177; 80047; 80076; 81001; 83690; 85025; 99284; J1885; J2270; J2405; Q9967

== ENCOUNTER 2021-03-01 12:10 | Emergency (ER) | payer OTHER ==
[~2021-03-01] VITALS: Ht 175.3 cm; Wt 97.8 kg
[~2021-03-01 12:10] MED LIST changes: +ATOR80TA59; +BUSP10TA; -CYMB60CA3 PO; +CYMB60CA4 PO; +ERGO500029; +HYDR-3713; +LIDO5DIS41 TOP; +LISI20TA33; +SERT-141 PO; +SYNT50TA PO
[2021-03-01] MEDS ORDERED: BUSP10TA PO (12:36)
[2021-03-01 15:07] LABS: BASO # 0.1 10^3/uL (0.0-0.2); BASO % 0.7 % (0.0-1.0); EOS # 0.4 10^3/uL (0.0-0.5); EOS % 3.9 % (0.0-3.0); HEMATOCRIT 43.8 % (42.0-52.0); HEMOGLOBIN 14.1 g/dl (13.5-17.5); LYMPH # 2.7 10^3/uL (1.5-5.0); LYMPH % 27.7 % (24.0-44.0); MEAN CORPUSCULAR HEMOGLOBIN 28.1 pg (27.0-33.0); MEAN CORPUSCULAR HGB CONC 32.2 g/dl (32.0-36.5); MEAN CORPUSCULAR VOLUME 87.3 fl (80.0-96.0); MONO # 0.5 10^3/uL (0.0-0.8); MONO % 5.5 % (2.0-8.0); NEUTROPHILS % 61.6 % (36.0-66.0); PLATELET COUNT, AUTOMATED 339 10^3/uL (150-450); RED BLOOD COUNT 5.02 10^6/uL (4.30-6.10); WHITE BLOOD COUNT 9.8 10^3/uL (4.0-10.0)
[2021-03-01] MEDS ORDERED: CEPH500C PO (15:59)
[2021-03-01] MEDS ORDERED: CEPHALEXIN 500 MG CAP PO ONE (16:05)
[2021-03-01 16:24] LABS: ERYTHROCYTE SEDIMENTATION RATE 33 mm/hr (0-15)
[2021-03-01 16:40] VITALS: BP 142/83
== END 2021-03-01 16:42 | disposition home or self-care (01) ==
LOC: M ED 12:10
DX: T81.49XA Infection following a procedure, other surgical site, initial encounter (principal); Y92.9 Unspecified place or not applicable; Y93.9 Activity, unspecified; Z96.82 Presence of neurostimulator; E11.9 Type 2 diabetes mellitus without complications; I10 Essential (primary) hypertension; E78.5 Hyperlipidemia, unspecified; E03.9 Hypothyroidism, unspecified; Z79.84 Long term (current) use of oral hypoglycemic drugs; Z79.899 Other long term (current) drug therapy; Z88.0 Allergy status to penicillin

== ENCOUNTER 2022-03-31 14:31 | Emergency (ER) | payer OTHER ==
[~2022-03-31] VITALS: Ht 175.3 cm; Wt 98.6 kg
[~2022-03-31 14:31] MED LIST changes: +BUSP10TA PO; +CEPH500C PO
[2022-03-31 14:32] VITALS: BP 160/80
[2022-03-31 15:08] LABS: APPEARANCE, URINE MANUAL CLEAR (CLEAR); COLOR, URINE MANUAL LT YELLOW (YELLOW)
[2022-03-31 15:09] LABS: BILIRUBIN, URINE MANUAL NEGATIVE (NEGATIVE); BLOOD URINE MANUAL NEGATIVE (NEGATIVE); GLUCOSE, URINE (UA) MANUAL NEGATIVE (NEGATIVE); KETONE, URINE MANUAL NEGATIVE (NEGATIVE); LEUKOCYTE ESTERASE, URINE MAN NEGATIVE (NEGATIVE); NITRITE, URINE MANUAL NEGATIVE (NEGATIVE); PH,URINE MAN 6.5 UNITS (5.0 - 7.0); PROTEIN, URINE MANUAL NEGATIVE (NEGATIVE); SPECIFIC GRAVITY,URINE MANUAL 1.015 (1.002-1.035); UROBILINOGEN, URINE MANUAL NORMAL (NORMAL)
[2022-03-31 15:16] LABS: BASO # 0.1 10^3/uL (0.0-0.2); BASO % 0.9 % (0.0-1.0); EOS # 0.3 10^3/uL (0.0-0.5); EOS % 4.4 % (0.0-3.0); HEMATOCRIT 43.8 % (42.0-52.0); HEMOGLOBIN 14.5 g/dl (13.5-17.5); LYMPH # 2.4 10^3/uL (1.5-5.0); LYMPH % 31.1 % (24.0-44.0); MEAN CORPUSCULAR HEMOGLOBIN 28.4 pg (27.0-33.0); MEAN CORPUSCULAR HGB CONC 33.1 g/dl (32.0-36.5); MEAN CORPUSCULAR VOLUME 85.9 fl (80.0-96.0); MONO # 0.6 10^3/uL (0.0-0.8); NEUTROPHILS # 4.2 10^3/uL (1.5-8.5); NEUTROPHILS % 55.2 % (36.0-66.0); PLATELET COUNT, AUTOMATED 244 10^3/uL (150-450); WHITE BLOOD COUNT 7.7 10^3/uL (4.0-10.0)
[2022-03-31 15:52] LABS: ALBUMIN 3.8 GM/DL (3.2-5.2); ALT/SGPT 28 U/L (12-78); BILIRUBIN,DIRECT < 0.1 MG/DL (0.0-0.2); BILIRUBIN,TOTAL 0.4 MG/DL (0.2-1.0); BLOOD UREA NITROGEN 10 MG/DL (7-18); CALCIUM LEVEL 9.3 MG/DL (8.5-10.1); CARBON DIOXIDE LEVEL 31 MEQ/L (21-32); CHLORIDE LEVEL 107 MEQ/L (98-107); CREATININE FOR GFR 0.88 MG/DL (0.70-1.30); GLOMERULAR FILTRATION RATE > 60.0 (>60); GLUCOSE, FASTING 102 MG/DL (70-100); LIPASE 115 U/L (73-393); POTASSIUM SERUM 3.8 MEQ/L (3.5-5.1); SODIUM LEVEL 140 MEQ/L (136-145); TOTAL PROTEIN 7.3 GM/DL (6.4-8.2)
[2022-03-31] MEDS ORDERED: KETOROLAC 30 MG/ML 1ML VIAL IV ONE (17:30)
[2022-03-31] MEDS ORDERED: ONDANSETRON 4MG 2ML VIAL IV ONE (17:30)
== END 2022-03-31 20:19 | disposition home or self-care (01) ==
LOC: M ED 14:31
DX: K40.90 Unilateral inguinal hernia, without obstruction or gangrene, not specified as recurrent (principal); E11.9 Type 2 diabetes mellitus without complications; I10 Essential (primary) hypertension; G47.33 Obstructive sleep apnea (adult) (pediatric); Z86.718 Personal history of other venous thrombosis and embolism; K57.30 Diverticulosis of large intestine without perforation or abscess without bleeding; Z79.84 Long term (current) use of oral hypoglycemic drugs; Z79.899 Other long term (current) drug therapy; Z88.0 Allergy status to penicillin
CPT/HCPCS: 74176; 80048; 80076; 81002; 83690; 85025; 96374; 96375; 99282; J1885; J2405

== ENCOUNTER 2022-04-03 14:33 | Emergency (ER) | payer OTHER ==
[~2022-04-03] VITALS: Ht 175.3 cm; Wt 97.3 kg
[2022-04-03 14:34] VITALS: BP 150/88
[2022-04-03] MEDS ORDERED: BUSP15TA47 (14:57)
[2022-04-03] MEDS ORDERED: SYNT25TA PO (14:57)
[2022-04-04] MEDS ORDERED: KETO10TAB PO (16:22)
== END 2022-04-03 18:14 | disposition left against medical advice (07) ==
LOC: M ED 14:33
DX: Z53.21 Procedure and treatment not carried out due to patient leaving prior to being seen by health care provider (principal)

== ENCOUNTER 2022-04-04 09:21 | Emergency (ER) | payer OTHER ==
[~2022-04-04] VITALS: Ht 175.3 cm; Wt 97.7 kg
[~2022-04-04 09:21] MED LIST changes: +BUSP15TA47; +SYNT25TA PO
[2022-04-04 13:42] LABS: BASO # 0.1 10^3/uL (0.0-0.2); BASO % 0.8 % (0.0-1.0); EOS # 0.5 10^3/uL (0.0-0.5); EOS % 5.1 % (0.0-3.0); HEMATOCRIT 42.9 % (42.0-52.0); HEMOGLOBIN 14.2 g/dl (13.5-17.5); LYMPH # 3.3 10^3/uL (1.5-5.0); MEAN CORPUSCULAR HEMOGLOBIN 28.6 pg (27.0-33.0); MEAN CORPUSCULAR HGB CONC 33.1 g/dl (32.0-36.5); MEAN CORPUSCULAR VOLUME 86.3 fl (80.0-96.0); MONO # 0.6 10^3/uL (0.0-0.8); MONO % 5.6 % (2.0-8.0); NEUTROPHILS # 5.5 10^3/uL (1.5-8.5); NEUTROPHILS % 55.1 % (36.0-66.0); PLATELET COUNT, AUTOMATED 246 10^3/uL (150-450); RED BLOOD COUNT 4.97 10^6/uL (4.30-6.10); WHITE BLOOD COUNT 9.9 10^3/uL (4.0-10.0)
[2022-04-04] MEDS ORDERED: ISOVUE-370 76% 100ML VIAL As Ordered ONE (13:54)
[2022-04-04 14:26] LABS: ALBUMIN 3.7 GM/DL (3.2-5.2); ALT/SGPT 34 U/L (12-78); BILIRUBIN,DIRECT < 0.1 MG/DL (0.0-0.2); BILIRUBIN,TOTAL 0.5 MG/DL (0.2-1.0); BLOOD UREA NITROGEN 12 MG/DL (7-18); CALCIUM LEVEL 9.2 MG/DL (8.5-10.1); CARBON DIOXIDE LEVEL 27 MEQ/L (21-32); CHLORIDE LEVEL 107 MEQ/L (98-107); CREATININE FOR GFR 0.96 MG/DL (0.70-1.30); GLOMERULAR FILTRATION RATE > 60.0 (>60); GLUCOSE, FASTING 97 MG/DL (70-100); LIPASE 120 U/L (73-393); POTASSIUM SERUM 5.3 MEQ/L (3.5-5.1); SODIUM LEVEL 137 MEQ/L (136-145); TOTAL PROTEIN 7.2 GM/DL (6.4-8.2)
[2022-04-04] MEDS ORDERED: KETOROLAC 30 MG/ML 1ML VIAL IV ONE (14:35)
[2022-04-04] MEDS ORDERED: MIRALAX *UNIT DOSE* 17GM PACKET PO ONE (14:35)
[2022-04-04] MEDS ORDERED: KETO10TAB PO (16:22)
[2022-04-04 16:30] VITALS: BP 134/74
== END 2022-04-04 16:32 | disposition home or self-care (01) ==
LOC: M ED 09:21
DX: K40.90 Unilateral inguinal hernia, without obstruction or gangrene, not specified as recurrent (principal); E11.9 Type 2 diabetes mellitus without complications; I10 Essential (primary) hypertension; Z86.718 Personal history of other venous thrombosis and embolism; G47.33 Obstructive sleep apnea (adult) (pediatric); F43.10 Post-traumatic stress disorder, unspecified; F41.9 Anxiety disorder, unspecified; E06.3 Autoimmune thyroiditis; F17.200 Nicotine dependence, unspecified, uncomplicated; Z88.0 Allergy status to penicillin; Z79.84 Long term (current) use of oral hypoglycemic drugs; Z79.899 Other long term (current) drug therapy
CPT/HCPCS: 74177; 76857; 80047; 80048; 80076; 83690; 85025; 96374; 99284; J1885; Q9967